=== PATIENT | female | born 1950 | race Caucasian/White ===

== ENCOUNTER → 2020-07-19 15:51 | Outpatient (CLI) | payer OTHER, SELFPAY ==
--- NOTE | ~2020-07-19 | MM_ITS ---
EXAMINATION: MM screening saba BI w aleksandr HISTORY: Screening mammogram TECHNIQUE: Craniocaudal and mediolateral oblique 3-D tomosynthesis images were obtained and synthetic 2-D images were generated. CAD analysis was submitted and interpreted. COMPARISON: 04/19/2019, 03/13/2018, 11/05/2016 bilateral digital screening mammogram examinations BREAST PARENCHYMAL COMPOSITION: The breasts are almost entirely fatty. FINDINGS: There is no evidence of suspicious mass, calcification, or architectural distortion to sugg est malignancy in either breast. There has been no suspicious interval change. IMPRESSION: 1. No mammographic evidence of malignancy. 2. Recommend routine screening mammography in one year. BI-RADS Category 1: Negative Reviewed, dictated and finalized at location A. L DIAMETER GAUGER
== END ==
PROVIDERS: PCP Family Medicine Adolescent Medicine; Visit Provider Physician Assistant
DX: Z12.31 Encounter for screening mammogram for malignant neoplasm of breast (principal)
CPT/HCPCS: 77063; 77067

== ENCOUNTER → 2020-12-31 10:26 | Outpatient (CLI) | payer OTHER, SELFPAY ==
--- NOTE | ~2020-12-31 | DEXA_ITS ---
Bone Density Report Name: Katie Gomes Age: 70 Sex: Female Ethnicity: White Date of : 1950 Indication: postmenopausal; screening for osteoporosis; height loss; Referring Provider: Johnie, Mary Adams Study: Bone densitometry was performed. Exam Date: December 31, 2020 Accession number: [id number] Bone Density: Region BMD T-score Z-score Classification AP Spine (L1-L4) 1.060 0.1 2.3 Normal Femoral Neck (Left) 0.786 -0.6 1.3 Normal Total Hip (Left) 0.882 -0.5 1.1 Normal Femoral Neck (Right) 0.772 -0.7 1.1 Normal Total Hip (Right) 0.925 -0.1 1.4 Normal Total Hip Mean 0.904 -0.3 1.3 Normal World Health Organization criteria for BMD impression classify patients as: Normal (T-score at or above -1.0), Osteopenia (T-score between -1.0 and -2.5), or Osteoporosis (T-score at or below -2.5). 10-year Fracture Risk: FRAX not reported because: All T-scores for Spine Total, Hip Total, Femoral Neck at or above -1.0 Previous Exams: Region Exam Age BMD T-score BMD Change BMD Change Date g/cm2 vs Baseline vs Previous AP Spine(L1-L4) 12/31/2020 70 1.060 0.1 -0.021 -0.052* 07/24/2015 65 1.112 0.6 0.030 0.063 07/28/2011 61 1.049 0.0 -0.033* -0.033* 07/23/2009 59 1.082 0.3 Total Hip(Left) 12/31/2020 70 0.882 -0.5 -0.038 -0.072* 07/24/2015 65 0.953 0.1 0.033 0.063 07/28/2011 61 0.890 -0.4 -0.029* -0.029* 07/23/2009 59 0.920 -0.2 Total Hip(Right) 12/31/2020 70 0.925 -0.1 0.011 -0.005 07/24/2015 65 0.931 -0.1 0.016 0.043 07/28/2011 61 0.887 -0.4 -0.027 -0.027 07/23/2009 59 0.914 -0.2 *Denotes significance at 95% confidence level, LSC for AP Spine = 0.022 g/cm2, LSC for Total Hip = 0.027 g/cm2 Clinical Information Provided by Patient: Has used the following medications: Calcium, Levothyroxine Patient maximum height was 62.0 Menopause Age: 50 No regular weight bearing exercise Drinks caffeinated beverages Onset of menses at age 12 Number of children 5 Impression: The patient has normal bone mass. The BMD for the AP Spine(L1-L4) decreased, changing by -0.052 since the last DXA exam. The BMD for the Total Hip(Left) decreased, changing by -0.072 since the last DXA exam. Discussion: BONE DENSITY IS ABOVE THE MINIMUM DESIRABLE LEVEL AT
== END ==
PROVIDERS: PCP Family Medicine Adolescent Medicine; Visit Provider Physician Assistant
DX: Z78.0 Asymptomatic menopausal state (principal)
CPT/HCPCS: 77080

== ENCOUNTER → 2021-10-17 13:34 | Outpatient (CLI) | payer OTHER, SELFPAY ==
--- NOTE | ~2021-10-17 | MM_ITS ---
EXAMINATION: MM screening saba BI w aleksandr HISTORY: Screening mammogram TECHNIQUE: Craniocaudal and mediolateral oblique 3-D tomosynthesis images were obtained and synthetic 2-D images were generated. CAD analysis was submitted and interpreted. COMPARISON: July 19, 2020, April 19, 2019, February 24, 2018 bilateral screening mammogram exami nations BREAST PARENCHYMAL COMPOSITION: The breasts are almost entirely fatty. FINDINGS: There is no evidence of suspicious mass, calcification, or architectural distortion to sugg est malignancy in either breast. There has been no suspicious interval change. IMPRESSION: 1. No mammographic evidence of malignancy. 2. Recommend routine screening mammography in one year. BI-RADS Category 1: Negative Reviewed, dictated and finalized at location A.
== END ==
PROVIDERS: PCP Family Medicine Adolescent Medicine; Visit Provider Family Medicine Adolescent Medicine
DX: Z12.31 Encounter for screening mammogram for malignant neoplasm of breast (principal)
CPT/HCPCS: 77063; 77067

== ENCOUNTER → 2021-12-10 15:10 | Outpatient (CLI) | payer OTHER, SELFPAY ==
--- NOTE | ~2021-12-10 | XR_ITS ---
XR lumbar spine 2-3V DATE: 12/10/2021 15:59 INDICATION: Multiple falls. Chronic low back pain TECHNIQUE: AP, lateral, coned lateral lumbosacral views COMPARISON: 01/30/2011 lumbar spine FINDINGS: There is diffuse osteopenia. Prominent degenerative spurring of the lower thoracic spine. Mild levoscoliosis of the lumbar spine. Moderate degenerative disc disease at L1 to, L2-3 and L5-S1 and mild degenerative disc disease at L3- 4 and L4-5. There is prominent degenerative change at the apophyseal joints in the lower lumbar and lumbosacral a tosha with associated approximately 2.5 mm grade 1 anterolisthesis at L4-5 and approximately 6 mm grade 1 anterolisthesis at L5-S1. No fracture or bone destruction is evident. The pedicles appear intact. There is degenerative change at the sacroiliac joints but no erosive change or ankylosis. IMPRESSION: Osteopenia Prominent degenerative spurring of the lower thoracic spine Mild to moderate degenerative disease of the lumbar spine Grade 1 anterolisthesis at L4-5 and L5-S1 due to degenerative change at the apophyseal joints Reviewed, dictated and finalized at location B. IMPRESSION: Osteopenia Prominent degenerative spurring of the lower thoracic spine Mild to moderate degenerative disease of the lumbar spine Grade 1 anterolisthesis at L4-5 and L5-S1 due to degenerative change at the apo physeal joints
== END ==
PROVIDERS: PCP Internal Medicine; Visit Provider Internal Medicine
DX: R29.6 Repeated falls (principal); G89.29 Other chronic pain; M85.88 Other specified disorders of bone density and structure, other site; M51.36 Other intervertebral disc degeneration, lumbar region; M51.34 Other intervertebral disc degeneration, thoracic region
CPT/HCPCS: 72100

== ENCOUNTER 2021-12-14 09:57 | Emergency (ER) | payer OTHER, SELFPAY ==
--- NOTE | ~2021-12-14 | US_ITS ---
EXAMINATION:US venous doppler LE RT INDICATION:Right leg swelling TECHNIQUE: Multiple grayscale, color flow and Doppler images of the right lower extremity deep venous systems were obtained and reviewed. COMPARISON:No prior studies for comparison. FINDINGS: The common femoral, superficial femoral and popliteal veins demonstrate normal respiratory variation, augmentation and compressibility. Color flow is also seen within the posterior tibial, pe roneal, greater saphenous and profunda veins. There are mildly enlarged right inguinal lymph nodes me asuring up to 2.7 cm, likely reactive. IMPRESSION: 1: No lower extremity deep venous thrombosis. Reviewed, dictated and finalized at location A.
--- NOTE | ~2021-12-14 | XR_ITS ---
XR tibia fibula RT 2V 12/14/2021 11:26 INDICATION: Right leg pain PROCEDURE: 2 views right tibia/fibula COMPARISON: No prior studies for comparison. FINDINGS: Fracture, dislocation or subluxation is not identified. There are degenerative changes of t he right knee and ankle. The soft tissues appear within normal limits. No foreign bodies are identif ied. IMPRESSION: 1: NO ACUTE BONE OR JOINT ABNORMALITY IDENTIFIED. Reviewed, dictated and finalized at location A.
--- NOTE | ~2021-12-14 | XR_ITS ---
XR foot RT min 3V 12/14/2021 11:26 Indication: Right foot pain and swelling Procedure: 4 views right foot Comparison: No prior studies for comparison. Findings: Osteopenia. Mild osteoarthritis of the first MTP joint. Lisfranc joint intact. No acute fra cture or traumatic malalignment. Small degenerative calcaneal enthesophyte. Impression: 1: No acute fracture. Reviewed, dictated and finalized at location A. Impression: 1: No acute fracture.
[2021-12-14 10:01] VITALS: BP 145/75; PULSE 79; RESP 17; TEMP 36.7; O2SAT 98
--- NOTE | 2021-12-14 11:25 | ED.LOWEXIN ---
HPI - Extremity Injury (Lower) General Chief Complaint: Extremity Injury, Lower Stated Complaint: swollen leg Time Seen by Provider: 12/14/21 10:48 Source: patient and RN notes reviewed Mode of arrival: ambulatory Limitations: no limitations History of Present Illness HPI Narrative: This is a 71 year old female who presents for evaluation of right foot and right lower leg discoloration and right leg swelling. Patient has history of frequent falls. Patient has fallen at least twice in past 3 days. She reports she fell 2 days ago . She is unsure if she injured her right leg. Her daughter is at bedside. She states patient looks to have bruising to right foot, and yesterday patient had what daughter is describing as petechia. Today she states her right lower leg looks bruised. Patient has also noticed right leg swelling yesterday but she is unsure if it has been there longer. She denies chest pain, sob. She has chronic weakness. Her daughter states patient was seen by new PCP 2 days and she has labs with lumbar xray. Patient denies headache , dizziness, or leg pain. She reports low back pain due to laying in her bed currently. Related Data Home Medications Medication Instructions Recorded Confirmed levothyroxine 50 mcg tablet 50 mcg PO DAILY 06/14/21 10/28/21 nystatin 100,000 unit/mL oral 1 ml PO BID PRN 09/23/21 10/28/21 suspension vibegron 75 mg tablet (Gemtesa) 75 mg PO DAILY 09/23/21 10/28/21 dicyclomine 20 mg tablet 20 mg PO QID 10/28/21 10/28/21 Allergies Allergy/AdvReac Type Severity Reaction Status Date / Time MINDY Inhibitors AdvReac Mild cough Verified 10/28/21 14:56 Review of Systems Review of Systems: All systems reviewed & are unremarkable except as noted in HPI and below Constitutional: Constitutional: Denies chills and Reports fatigue ENT: Denies nasal congestion Cardiovascular: Cardiovascular: Denies chest pain and Denies rapid heart rate Respiratory: Respiratory: Denies chest congestion, Denies cough and Denies dyspnea Gastrointestinal: Gastrointestinal: Denies abdominal pain and Denies nausea Musculoskeletal: Musculoskeletal: Reports back pain Neurologic: Denies headache(s) and Denies focal weakness [facility] Past Medical History Medical History (Updated 12/14/21 @ 13:34 by Cheryl Acevedo MD) Abnormal colonoscopy 07/13 adenoma Repeat 07/18 Bilateral primary osteoarthritis of knee Essential (primary) hypertension Hypothyroidism, unspecified Surgical History Surgical History History of carpal tunnel surgery Family History Family History Sibling Diabetes mellitus Son GERD (gastroesophageal reflux disease) Social History Social History (Updated 10/28/21 @ 14:58 by Cassidy Vaca MA) Smoking status: Former smoker Second hand tobacco smoke exposure: No Smoking end date: 05/25/88 Alcohol intake: never Substance use: never Substance use type: does not use Gender identity (if verbalized by the patient): Female Spiritual care concerns: No Agree to blood products: Yes Exam Const: General: no acute distress and alert Nutritional Appearance: obese Orientation/consciousness: patient oriented x3 Limitations: no limitations Eyes: EOM: EOMs intact bilaterally Chest: Chest palpation & inspection: normal inspection of the chest Resp: Effort & Inspection: normal respiratory effort Auscultation: clear to auscultation bilaterally Cardio: Rate: regular rate Rhythm: regular rhythm Heart sounds: no murmurs GI: GI Palp: Yes Soft to palpation, No Tenderness to palpation present (GI) and No Guarding due to palpation present (GI) Auscultation: normal bowel sounds Neuro: General: patient oriented x3, moves all extremities and CN's II-XI intact bilaterally Extrem: Other: right dorsum foot with swelling and ecchymosis; right lateral l
[2021-12-14 12:42] LABS: Basophils Percent Auto 0.5 % (0.2-1.2); Eosinophils Absolute Auto 0.3 K/mm3 (0-0.3); Eosinophils Percent Auto 3.3 % (0-4.4); Hematocrit 30.2 % (37.0-47.0); Hemoglobin 8.9 g/dL (12.0-15.0); Immature Granulocyte Absolute 0.01 K/mm3 (0.00-0.031); Immature Granulocyte Percent A 0.1 % (0-0.5); Lymphocytes Absolute Auto 1.51 K/mm3 (0.9-3.2); Lymphocytes Percent Auto 19.7 % (18.3-44.2); Mean Corpuscular HGB Conc 29.5 g/dl (32-36); Mean Corpuscular Hemoglobin 21.2 pg (26-34); Mean Corpuscular Volume 71.9 fl (80-100); Mean Platelet Volume 9.4 fl (7.4-10.4); Monocytes Absolute Auto 0.8 K/mm3 (0.1-0.6); Monocytes Percent Auto 10.6 % (2.6-8.5); Neutrophils Percent Auto 65.8 % (45.5-73.1); Platelet Count Result 303 k/mm3 (150-375); Red Cell Distribution Width 17.6 % (11.5-14.5); White Blood Count 7.7 K/mm3 (4.5-10.0)
[2021-12-14 12:54] LABS: Alanine Aminotransferase 19 U/L (6-35); Albumin Level 3.8 g/dL (3.5-5.1); Alkaline Phosphatase 95 U/L (38-126); Anion Gap 4 mmol/L (8-16); Aspartate Amino Transferase 33 U/L (14-36); Bilirubin,Total 0.6 mg/dL (0.2-1.3); Blood Urea Nitrogen 14 mg/dL (7-17); Calcium 8.5 mg/dL (8.4-10.2); Carbon Dioxide 30 mmol/L (22-30); Chloride 102 mmol/L (98-107); Estimated CRCL calculation 56 ml/min; Estimated Glomerular Filt Rate > 60; Glucose 88 mg/dL (65-110); Potassium 3.5 mmol/L (3.4-5.0); Sodium 136 mmol/L (137-145)
[2021-12-14 13:11] LABS: Platelet Estimate Adequate (Adequate)
[2021-12-14 13:12] LABS: Anisocytosis 1+ (NORMAL); Hypochromasia 2+ (NORMAL); Ovalocytes 1+ (NORMAL); Poikilocytosis 2+ (NORMAL)
--- NOTE | 2021-12-14 13:28 | PC.NURSE ---
Patient ambulatory with standby assist by ticket writer.
== END 2021-12-14 13:57 | disposition home or self-care (01) ==
PROVIDERS: Emergency Provider General Practice; PCP Internal Medicine
DX: S80.11XA Contusion of right lower leg, initial encounter (principal); S90.31XA Contusion of right foot, initial encounter; D64.9 Anemia, unspecified; I10 Essential (primary) hypertension; E03.9 Hypothyroidism, unspecified; M17.0 Bilateral primary osteoarthritis of knee; Z87.891 Personal history of nicotine dependence; W19.XXXA Unspecified fall, initial encounter
CPT/HCPCS: 36415; 73590; 73630; 80053; 85025; 85610; 85730; 93971; 99284

== ENCOUNTER 2024-05-10 09:47 | Emergency (ER) | payer MEDICARE, SELFPAY ==
--- NOTE | ~2024-05-10 | XR_ITS ---
XR chest 2V Ordering provider: Amanda Salgado APRN History: 74 years Female with . L sided chest pain . Comparison: None. FINDINGS: MEDIASTINUM: The cardiac silhouette is slightly enlarged. Congestive ruth. LUNGS: No effusions or pneumothorax. Opacification in the left lower lobe is seen suggestive of pneum onia. OTHER: No free air under the diaphragm. IMPRESSION: Left lower lobe pneumonia. Reviewed, dictated and finalized at location A. T LINE INSPECTOR IMPRESSION: Left lower lobe pneumonia.
--- NOTE | ~2024-05-10 | CT_ITS ---
CT brain wo con Ordering provider: Amanda Salgado APRN History: 74 years Female with . recent falls . Comparison: None. Technique: CT of the head without contrast. Radiation reduction technique utilized.The dose-length product was 605.33 mGy-cm. FINDINGS: BRAIN PARENCHYMA AND CSF SPACES: Mild leukoaraiosis and diffuse cortical atrophy. Mild atheromatous d isease. No midline shift, mass effect or hemorrhage. The brain parenchyma and CSF spaces are otherwi se normal. VISUALIZED PARANASAL SINUSES: Well aerated. MASTOIDS: Well aerated. BONES: The bones appear intact. SOFT TISSUES: Visualized nasopharynx is normal. Superficial soft tissues are normal. IMPRESSION: No acute intracranial findings. Reviewed, dictated and finalized at location A. EYOR
[2024-05-10 09:43] VITALS: BP 126/92; PULSE 87; RESP 16; TEMP 36.4; O2SAT 98
[2024-05-10 10:00] VITALS: BP 116/67; PULSE 71; RESP 14; O2SAT 97
--- NOTE | 2024-05-10 10:04 | ECG_ITS ---
Test Date: 2024-05-10 10:16:30 Measurements Intervals Penelope Rate: 69 P: 54 HI: 184 QRS: -33 QRSD: 93 T: 35 QT: 412 QTc: 444 Interpretive Statements SINUS RHYTHM LEFT AXIS DEVIATION [QRS AXIS < -30] No previous ECG available for comparison Electronically Signed On 05-10-2024 16:18:41 [employer]OUNDS SUPERVISOR by Nelia Molina M.D.
--- NOTE | 2024-05-10 10:12 | ED.FALL ---
HPI - Fall General Chief Complaint: Fall Stated Complaint: mult glf History of Present Illness HPI Narrative: Pt is a 74-year-old female who presents to the ER after a fall this morning. She reports she got up and slipped on a blanket on the floor, then fell backwards. Patient denies hitting her head and she denies being on blood thinners. She reports she has had lots of recent falls lately and has multiple bruises and scabs all over her body. Patient is unsure why she has been falling recently. She endorses left-sided ribcage pain but has no other complaints at this time. Patient denies any medical history but reports she lives in assisted living. She denies shortness of breath, headaches, one-sided weakness / numbness / tingling, recent fevers. Related Data Home Medications ?Medication ?Instructions ?Recorded ?Confirmed ?Last Taken ?Type nystatin 100,000 unit/mL oral 1 ml PO BID PRN 09/23/21 10/28/21 Unknown History suspension vibegron 75 mg tablet (Gemtesa) 75 mg PO DAILY 09/23/21 10/28/21 Unknown History dicyclomine 20 mg tablet 20 mg PO QID 10/28/21 10/28/21 Unknown History Allergies Allergy/AdvReac Type Severity Reaction Status Date / Time MINDY Inhibitors AdvReac Mild cough Verified 10/28/21 14:56 Review of Systems Review of Systems: All systems reviewed & are unremarkable except as noted in HPI and below PMFSH Past Medical History Medical History Abnormal colonoscopy 07/13 adenoma Repeat 07/18 Hypothyroidism, unspecified Bilateral primary osteoarthritis of knee Essential (primary) hypertension Surgical History Surgical History History of carpal tunnel surgery Family History Family History Sibling Diabetes mellitus Son GERD (gastroesophageal reflux disease) Social History Social History Smoking status: Former smoker Second hand tobacco smoke exposure: No Smoking end date: 05/25/88 Alcohol intake: never Substance use: never Substance use type: does not use Living arrangements: alone Occupation/Education: retired Gender identity (if verbalized by the patient): Female Spiritual care concerns: No Agree to blood products: Yes Exam Narrative: GENERAL: Well appearing, well-nourished, non-toxic, in no acute distress. HEAD: Normocephalic, atraumatic. NECK: Supple. No adenopathy, no masses. RESPIRATORY: Airway patent, respirations nonlabored. Clear to auscultation bilaterally, no rales, rhonchi, wheezing. CARDIOVASCULAR: Regular rate and rhythm without murmurs, rubs, or gallops. Peripheral pulses 2+ and equal bilaterally. Pain to L rib cage with palpation. ABDOMINAL: Soft, nontender, nondistended, no hepatosplenomegaly. Normoactive BS. MUSCULOSKELETAL: Moves all extremities. Strength/ROM intact without gross deformities. SKIN: Warm, dry, normal color. No rashes. NEURO: A&O X3. Speech clear. Cranial nerves II-XII grossly intact. No ataxic movements. PSYCHIATRIC: Appropriate mood and affect. Normal interaction. Course Vital Signs Vital signs: Vital Signs Temperature 36.4 C 05/10/24 09:43 Pulse Rate 87 05/10/24 09:43 Respiratory Rate 16 05/10/24 09:43 Blood Pressure 126/92 H 05/10/24 09:43 Pulse Oximetry 98 05/10/24 09:43 Oxygen Delivery Room Air 05/10/24 09:43 Temperature 36.4 C 05/10/24 09:43 Pulse Rate 78 05/10/24 12:37 Respiratory Rate 15 05/10/24 12:37 Blood Pressure 129/67 05/10/24 12:37 Pulse Oximetry 95 05/10/24 12:37 Oxygen Delivery Room Air 05/10/24 09:43 MDM - Fall MDM Narrative Medical decision making narrative: Pt is a 74-year-old female who presents to the ER after a fall this morning. She reports she got up and slipped on a blanket on the floor, then fell backwards. Patient denies hitting her head and she denies being on blood thinners. She reports she has had lots of recent falls lately and has multiple bruises and scabs all over her body. Patient is unsure why she has been falling recently. She endorses left-sided ribcage pain but has no other complaints at this time. Patient denies any medical history but reports she lives in assisted living. She denies shortness of breath, headaches, one-sided weakness / numbness / tingling, recent fevers. Labs Ordered: CBC, CMP, EtOH, UA, INR, PTT, troponin, COVID Imaging Ordered: CT brain, chest x-ray Results: Patient's CBC indicates white blood cell count of 12.9. Coags are within normal limits. Patient's CMP indicates a carbon dioxide of 31, anion gap 3, BUN of 21, creatinine of 1.10, estimated GFR of 49. her urinalysis indicated 3+ leukocytes, white blood cells 51-100, ethanol was less than 10. Negative respiratory panel swab. Diagnosis: Pneumonia, urinary tract infection Risks: HEART score: 3 HEART Pathway for Early Discharge in Acute Chest Pain from [facility] on 05/10/2024 All calculations should be rechecked by clinician prior to use RESULT SUMMARY: 3 points HEART Pathway Score Low risk 0.9-1.7% 30-day MACE Repeat troponin at 3 hours and if negative, discharge home with outpatient follow-up. INPUTS: History ?> 0 = Slightly suspicious EKG ?> 0 = Normal Age ?> 2 = >=5 Risk factors ?> 1 = 1-2 risk factors Initial troponin ?> 0 = <=normal limit Patient Education/Shared MDM: Results shared with the patient. She verbalizes understanding. As long as patient can ambulate around the ER she can be discharged home. Patient will be discharged with a prescription for Augmentin and doxycycline. She should follow-up with her primary care provider in the next 2-3 days. Patient verbalizes understanding and is in agreement with plan to discharge home. All questions answered. Vital signs stable at time of discharge. Differential Diagnosis Differential diagnosis: Likely concussion without loss of consciousness Lab Data Attestation: I reviewed the patient's lab results. 05/10/24 10:36 05/10/24 10:36 Labs: Lab Results 05/10/24 05/10/24 Range/Units 10:36 11:14 WBC 12.9 H (4.5-10.0) K/mm3 RBC 4.42 (4.2-5.4) M/mm3 Hgb 12.4 D (12.0-15.0) g/dL Hct 39.0 (37.0-47.0) % MCV 88.2 (80-100) fl MCH 28.1 (26-34) pg MCHC 31.8 L (32-36) g/dl RDW 15.4 H (11.5-14.5) % Plt Count 296 (150-375) k/mm3 MPV 10.1 (7.4-10.4) fl Immature Gran % (Auto) 0.5 (0-0.5) % Neut % (Auto) 78.0 H (45.5-73.1) % Lymph % (Auto) 11.0 L (18.3-44.2) % [place] % (Auto) 7.1 (2.6-8.5) % Eos % (Auto) 3.0 (0-4.4) % Baso % (Auto) 0.4 (0.2-1.2) % Lymph # (Auto) 1.42 (0.9-3.2) K/mm3 [place] # (Auto) 0.9 H (0.1-0.6) K/mm3 Eos # (Auto) 0.4 H (0-0.3) K/mm3 Baso # (Auto) 0.1 (0.0-0.1) K/mm3 Abs Immat Gran (auto) 0.06 H (0.00-0.031) K/mm3 Absolute Neuts (auto) 10.1 H (1.3-6.7) K/mm3 Absolute Nucleated RBC 0.000 (0.0-0.012) K/mm3 Nucleated RBC % 0.0 (0.0-0.2) % PT 13.8 (11.1-14.7) Seconds INR 1.0 APTT 35.3 (22.3-36.8) Seconds Sodium 137 (137-145) mmol/L Potassium 3.6 (3.4-5.0) mmol/L Chloride 103 (98-107) mmol/L Carbon Dioxide 31 H (22-30) mmol/L Anion Gap 3 L (4-12) mmol/L BUN 21 H (7-17) mg/dL Creatinine 1.10 H (0.7-1.0) mg/dL Estim Creat Clear Calc 0 ml/min Estimated GFR 49 L (59 - ) Glucose 86 (65-110) mg/dL Calcium 8.9 (8.4-10.2) mg/dL Total Bilirubin 1.1 (0.2-1.3) mg/dL AST 33 (14-36) U/L ALT 22 (6-35) U/L Alkaline Phosphatase 89 (38-126) U/L Troponin I < 0.012 (0.000-0.034) ng/mL Total Protein 7.0 (6.3-8.2) g/dL Albumin 3.6 (3.5-5.1) g/dL Urine Color Yellow (Yellow) Urine Appearance Cloudy H (Clear) Urine pH 6.5 (5.0-9.0) Ur Specific [place] 1.011 (1.001-1.035) Urine Protein Negative (Negative) mg/dL Urine Glucose (UA) Negative (Negative) mg/dL Urine Ketones Negative (Negative) mg/dL Ur Blood (Man) Negative (Negative) Urine Nitrate Negative (Negative) Urine Bilirubin Negative (Negative) Urine Urobilinogen 0.2 (<2.0) mg/dL Leukocyte Esterase Rfl 3+ H (Negative) LISSET/UL Urine RBC 0-2 (0-2) /hpf Urine WBC 51-100 H (0-3) /hpf Ur Squamous Epith Cells Few (Few) /hpf Urine Bacteria None seen /hpf Urine Casts 0-2 Ethyl Alcohol < 10 (<10) mg/dL Influenza A (RT-PCR) Negative (Negative) Influenza B (RT-PCR) Negative (Negative) RSV (RT-PCR) Negative (Negative) SARS-CoV-2 RNA (RT-PCR) Negative (Negative) Imaging Data Attestation: I personally reviewed and interpreted this imaging study as follows: Radiologist's impression: Impressions Head CT 05/10/24 10:33 IMPRESSION: No acute intracranial findings. Chest X-Ray 05/10/24 10:39 IMPRESSION: Left lower lobe pneumonia. Discharge Plan Discharge Clinical Impression: Pneumonia, Urinary tract infection Patient Disposition: Home, Self-Care Condition: Stable Instructions: Antibiotic Form, Urinary Tract Infection in Women (ED), Community Acquired Pneumonia (ED) Additional Instructions: Please return to the ER with an worsening symptoms. Follow-up with primary care provider in the next 2-3 days. Take all medications as prescribed. Patient Language: Latvian Prescriptions: New amoxicillin-pot clavulanate 875-125 mg tablet 1 tablet PO Q12H Qty: 20 0RF doxycycline monohydrate 100 mg tablet 100 mg PO BID Qty: 20 0RF No Action Gemtesa 75 mg tablet 75 mg PO DAILY nystatin 100,000 unit/mL suspension 1 ml PO BID PRN Rx Instructions: swish and swallow dicyclomine 20 mg tablet 20 mg PO QID triamcinolone acetonide 0.1 % cream 1 applic topical BID Qty: 15 0RF amoxicillin 500 mg tablet 500 mg PO Q8H Qty: 30 0RF sertraline 100 mg tablet 100 mg PO DAILY Qty: 90 1RF losartan 100 mg tablet 100 mg PO DAILY Qty: 90 2RF bupropion HCl [Wellbutrin XL] 150 mg tablet extended release 24 hr 150 mg PO QAM Qty: 30 2RF levothyroxine 50 mcg tablet See Rx Instructions .ROUTE .COMPLEX Qty: 90 2RF Dose Instruction: TAKE 1 TABLET BY MOUTH EVERY DAY Rx Instructions: TAKE 1 TABLET BY MOUTH EVERY DAY omeprazole 20 mg capsule,delayed release(DR/EC) See Rx Instructions .ROUTE .COMPLEX Qty: 90 0RF Dose Instruction: Take 1 capsule by mouth once daily Rx Instructions: Take 1 capsule by mouth once daily Follow-up/Referrals: Ester,MD Rosmery [Primary Care Provider] - Time of Disposition: 13:39
[2024-05-10] MEDS: SODIUM CHLORIDE 0.9% IV 1,000 ML 999 ML IV CONT (10:20)
[2024-05-10 10:50] LABS: Basophils Absolute Auto 0.1 K/mm3 (0.0-0.1); Basophils Percent Auto 0.4 % (0.2-1.2); Eosinophils Absolute Auto 0.4 K/mm3 (0-0.3); Hemoglobin 12.4 g/dL (12.0-15.0); Immature Granulocyte Absolute 0.06 K/mm3 (0.00-0.031); Immature Granulocyte Percent A 0.5 % (0-0.5); Lymphocytes Absolute Auto 1.42 K/mm3 (0.9-3.2); Mean Corpuscular HGB Conc 31.8 g/dl (32-36); Mean Corpuscular Hemoglobin 28.1 pg (26-34); Mean Corpuscular Volume 88.2 fl (80-100); Mean Platelet Volume 10.1 fl (7.4-10.4); Monocytes Absolute Auto 0.9 K/mm3 (0.1-0.6); Monocytes Percent Auto 7.1 % (2.6-8.5); Neutrophils Absolute Auto 10.1 K/mm3 (1.3-6.7); Platelet Count Result 296 k/mm3 (150-375); Red Blood Count 4.42 M/mm3 (4.2-5.4); Red Cell Distribution Width 15.4 % (11.5-14.5); White Blood Count 12.9 K/mm3 (4.5-10.0)
[2024-05-10 11:00] LABS: Alanine Aminotransferase 22 U/L (6-35); Albumin Level 3.6 g/dL (3.5-5.1); Alkaline Phosphatase 89 U/L (38-126); Anion Gap 3 mmol/L (4-12); Aspartate Amino Transferase 33 U/L (14-36); Bilirubin,Total 1.1 mg/dL (0.2-1.3); Blood Urea Nitrogen 21 mg/dL (7-17); Calcium 8.9 mg/dL (8.4-10.2); Carbon Dioxide 31 mmol/L (22-30); Chloride 103 mmol/L (98-107); Estimated CRCL calculation 0 ml/min; Estimated Glomerular Filt Rate 49; Ethanol < 10 mg/dL (<10); Glucose 86 mg/dL (65-110); Potassium 3.6 mmol/L (3.4-5.0); Sodium 137 mmol/L (137-145)
[2024-05-10 11:11] LABS: Troponin I < 0.012 ng/mL (0.000-0.034)
[2024-05-10 11:17] LABS: Partial Thromboplastin Time 35.3 Seconds (22.3-36.8); Prothrombin Time 13.8 Seconds (11.1-14.7)
[2024-05-10 11:26] LABS: Add Urine Microscopic? YES; Appearance Urine Cloudy (Clear); Bacteria Urine None Seen /hpf; Bilirubin Urine Negative (Negative); Blood Urine Negative (Negative); Color Urine Yellow (Yellow); Glucose Urine UA Negative (Negative); Ketones Urine Negative (Negative); Leukocyte Esterase Ur 3+ LEU/UL (Negative); Nitrate Urine Negative (Negative); Non Pathogenic Casts 0-2; Protein Urine Negative (Negative); RBC Urine 0-2 /hpf (0-2); Specific Grav Ur 1.011 (1.001-1.035); Squamous Epithelial Cell Urine Few /hpf (Few); Urobilinogen Urine 0.2 mg/dL (<2.0); WBC Urine 51-100 /hpf (0-3); pH Urine 6.5 (5.0-9.0)
[2024-05-10 11:30] LABS: Influenza A QL RT-PCR Negative (Negative); Influenza B QL RT-PCR Negative (Negative); RSV RNA, RT-PCR Negative (Negative); SARS-CoV-2 RNA PCR Negative (Negative)
[2024-05-10 12:37] VITALS: BP 129/67; PULSE 78; RESP 15; O2SAT 95
--- NOTE | 2024-05-10 13:36 | PC.NURSE ---
Ambulated using walker. Tolerated well with steady gait.
[2024-05-10] MEDS: DOXYCYCLINE HYCLATE 100 MG TABLET PO (13:40)
[2024-05-10] MEDS: AMOXICILLIN/CLAVULANATE K 875-125 MG TAB 1 TABLET PO (13:41)
== END 2024-05-10 15:05 ==
PROVIDERS: Emergency Provider Registered Nurse; PCP Internal Medicine
DX: J18.9 Pneumonia, unspecified organism (principal); N39.0 Urinary tract infection, site not specified; R29.6 Repeated falls; I10 Essential (primary) hypertension; E03.9 Hypothyroidism, unspecified; M17.0 Bilateral primary osteoarthritis of knee; Z87.891 Personal history of nicotine dependence; W18.09XA Striking against other object with subsequent fall, initial encounter
CPT/HCPCS: 36415; 70450; 71046; 80053; 81001; 82077; 84484; 85025; 85610; 85730; 87086; 87637; 93005; 96360; 99284; A9270; J7030

== ENCOUNTER 2024-09-28 14:45 | Emergency (ER) | payer BC, SELFPAY ==
--- NOTE | ~2024-09-28 | CT_ITS ---
CT brain wo con Ordering provider: Leah Baker History: 74 years Female with . head injury . Comparison: None. Technique: CT of the head without contrast. Radiation reduction technique utilized. The dose-length product was 605.33 mGy-cm. FINDINGS: BRAIN PARENCHYMA AND CSF SPACES: Mild leukoaraiosis and diffuse cortical atrophy. Mild atheromatous d isease. Dilatation of the ventricle is more prominent than the brain atrophy. Normal pressure hydroce phalus should be considered. Vasogenic edema is less likely with no focal lesions seen in the brain.f ollow-up advised. No midline shift, mass effect or hemorrhage. The brain parenchyma and CSF spaces a re otherwise normal. VISUALIZED PARANASAL SINUSES: Well aerated. MASTOIDS: Well aerated. BONES: The bones appear intact. SOFT TISSUES: Visualized nasopharynx is normal. Superficial soft tissues are normal. IMPRESSION: No acute intracranial findings. Mild brain atrophy with deep white matter ischemic changes. The ventricles are slightly dilated more than the brain atrophy and normal pressure hydrocephalus should be considered. The possibility of vas ogenic edema is less likely but cannot be excluded. Follow-up advised Reviewed, dictated and finalized at location A. IMPRESSION: No acute intracranial findings. Mild brain atrophy with deep white matter ischemic changes. The ventricles are slightly dilated more than the brain atrophy and normal pressure hydrocephalus should be considered. The possibility of vasogenic edema is less likely but can not be excluded. Follow-up advised
--- NOTE | ~2024-09-28 | XR_ITS ---
XR chest 2V Ordering provider: Leah Baker History: 74 years Female with . fall . Comparison: May 10, 2024 FINDINGS: MEDIASTINUM: The cardiac silhouette is not enlarged. LUNGS: No infiltrates, effusions or pneumothorax. OTHER: No free air under the diaphragm. Degenerative changes of the spine. Old healed fracture of the left humerus. IMPRESSION: No acute cardiopulmonary pathology. Reviewed, dictated and finalized at location A.
--- NOTE | ~2024-09-28 | XR_ITS ---
XR forearm LT 2V Ordering provider: Leah Baker History: . fall, injury . Comparison: None. FINDINGS: BONES: No acute fracture or dislocation. JOINT SPACES: Normal. SOFT TISSUES: Normal. IMPRESSION: No acute osseous abnormality left forearm. Reviewed, dictated and finalized at location A.
--- NOTE | ~2024-09-28 | XR_ITS ---
SINGLE AP VIEW PELVIS Ordering provider: Leah Baker History: . fall . Comparison: None. FINDINGS: BONES: No acute fracture or dislocation. HIP JOINT SPACES: Bilateral hip severe osteoarthritic changes. SACROILIAC JOINT SPACES/LUMBAR SPINE: The sacroiliac joint spaces shows bilateral sacroiliitis.. Mild degenerative changes of the visualized lower lumbar spine. PUBIC SYMPHYSIS: Pubic symphysitis. SOFT TISSUES: Normal. IMPRESSION: No acute osseous abnormality pelvis. Reviewed, dictated and finalized at location A.
--- NOTE | ~2024-09-28 | CT_ITS ---
EXAMINATION: CT cervical spine wo con DATE: 09/28/2024 15:53 INDICATION: Head injury TECHNIQUE: Computed tomography (CT) of the cervical spine was performed without intravenous contrast. Automated exposure control and iterative reconstruction technique were employed. The dose-length pro duct was 377.64 mGy-cm. COMPARISON: None FINDINGS: 1 mm anterolisthesis C4 on C5. Moderate osteoarthritis at the atlantoaxial articulation. C5-C6 instru mented anterior spinal fusion with interbody bone graft cages and anterior plate-screw fixation. Unfu sed vertebral body heights are normal. No fracture. Moderate disc height loss with severe bilateral u ncovertebral osteoarthritis at C6-C7. Mild disc height loss with moderate uncovertebral osteoarthriti s at C3-C4 and with mild uncovertebral osteoarthritis at C4-C5. Posterior disc osteophyte complex at C6-C7 and posterior endplate osteophytes at C5-C6 and mild central canal stenosis. Multilevel severe bilateral cervical facet osteoarthritis. There is moderate neural foraminal stenosis on the left at C 3-C4, on the right at C4-C5 and bilaterally at C5-C6. Mild neural from stenosis at remaining cervical levels. Atherosclerotic calcifications at the bilateral carotid bulbs. Cervical soft tissues are oth erwise unremarkable. Mild emphysema mild pleural parenchymal scarring at the bilateral apices of the lungs. IMPRESSION: 1. Moderate cervical spondylosis with instrumented C5-C6 anterior spinal fusion. No acute osseous abn ormality. Reviewed, dictated and finalized at location A. IMPRESSION: 1. Moderate cervical spondylosis with instrumented C5-C6 anterior spinal fusion . No acute osseous abnormality.
--- OUTSIDE RECORDS SUMMARY | 2024-09-28 14:51 | XMS_ITS | Data Portability ---
Author Organization [place] [facility] Address [address] [place] [address] Assessment No assessment recorded. Plan of Treatment Reminders Order Date Submit Date Provider Last Modified By Organization Details Last Modified Time Details Appointments None recorded. Lab None recorded. Referral occupation al therapist referral [email or web address] [place] [address], [id number], 3 11:26:48 physical therapist referral - PT/OT leni please to start around March 052022 023 [facility] ([facility] PT/OT), [address] [place], [address], 3 23:15:29 Procedures None recorded. Surgeries None recorded. Imaging None recorded. Medication Orders None recorded. Patient TargetsNo targets recorded. Patient Instructions Encounter Date Encounter Id Patient Instructions Last Modified By Organization Details Last Modified Time 02/13/2023 [id number] I explained to Katie that the fracture she has sustained is not one that requires surgical intervention. The way that we are going to treat this is with a sling. I told her that I want her to work on elbow and wrist range of motion exercises a few times a day to keep these joints from getting stiff. She can go ahead and start doing those now. Starting in a week I want her to work on gentle range of motion exercises in her shoulder, including front to back and pendulum exercises, which were shown to her in the office today. She should do these a few times a day as well. I want her to start some physical therapy in 3 weeks working on range of motion in her shoulder. She can continue to take Tylenol as needed for pain and she can also use ice as needed. I want to follow-up with her in about 6 weeks with another x-ray to check on her progress. She was instructed to contact our office with any questions or concerns. She voiced understanding and agreed with this plan of care. Patient was seen by Missy Bolden NP, and the diagnoses, problems and treatment plan for the patient has been reviewed and approved by me, Dr. Hira Mei. Not available 02/15/2023 23:03:03 03/25/2023 [id number] I discussed with Katie that her x-rays today show that there is callus forming through her fracture, so she can discontinue the use of her sling. I am going to send an order to physical therapy to work on range of motion and strengthening in the shoulder. I told her that we need to get concentrate on getting some motion back in that shoulder in order for her to have the best outcome following her fracture. She can use ice and OTC pain medication as needed. I want to follow-up with her in about 4 weeks to check on her progress. She was instructed to contact our office with any questions or concerns. She voiced understanding and agreed with this plan of care. Patient was seen by Missy Bolden NP, and the diagnoses, problems and treatment plan for the patient has been reviewed and approved by , Dr. Hira Mei. Not available 03/27/2023 00:29:14 Reason for Referral Physical Therapist Referral for Closed fracture of surgical neck of humerus PT/OT eval and tx please to start around March 05 Referring Physician: Hira Mei, Orthopedic Surgery, Encounter Date: 02/13/2023 Occupational Therapist Refer ral for Closed fracture of surgical neck of humerus Referring Physician: Hira Mei, Orthopedic Surgery, Encounter Date: 03/25/2023 Results Created Date Observation Date Name Description Value Unit Range Abnormal Flag Note LastModifiedBy Organization Detail LastModifiedTime 03/25/20 23 03/25/2023 XR, shoul adam No observ ation record ed. [email or web address] [facility] [address] [facility], [place], [address], 03/26/2023 15:39:03 Result Notes None recorded. Problems Name Problem SNOMED Code Status Onset Date Resolution Date Notes Provider Name and Address Organization Details Recorded Time Closed fracture of surgical neck of humerus 17935205 Active 023 MISSY BOLDEN, GUEST SERVICES MANAGER [address], [place], [address] , [place] [facility] 3 22:59:46 Pain in left arm 754539676 Active 023 MISSY BOLDEN, GUEST SERVICES MANAGER [address], [place], [address] , [place] [facility] 3 23:00:05 Problem Notes None recorded. Procedures Surgical History None recorded. Imaging Results Imaging Date Name Status LastModified by Organiz ation Details LastModified Time 03/25/2023 XR, shoulder completed [email or web address] [facility] [address] [facility], [place], [address], 03/26/2023 15:39:03 Procedure Notes None recorded. Medical Equipment None Reported. Allergies No known drug allergies Medications Name Sig Start Date Stop Date Status Note LastModified by Organization Details LastModified Time goodsense fiber 500 mg tabs active Not Available Not Available Not Available cyclobenzapr ine 10 mg tablet TAKE 1 TABLET BY MOUTH THREE TIMES DAILY NEEDED FOR MUSCLE SPASM active Not Available Not Available No t Available atorvastatin 40 mg tablet TAKE 1 TABLET BY MOUTH NIGHTLY AT BEDTIME active Not Available Not Available No t Available atorvastatin 20 mg tablet TAKE 1 TABLET BY MOUTH AT NIGHT AT BEDTIME active Not Available Not Available No t Available fluconazole 150 mg tablet active Not Available Not Available Not Available hydrocodone 5 mg-acetamino phen 325 mg tablet TAKE 1 TO 2 TABLETS BY MOUTH EVERY 6 HOURS NEEDED FOR PAIN active Not Available Not Available No t Available sertraline 100 mg tablet TAKE 1 TABLET BY MOUTH ONCE DAILY active Not Available Not Available No t Available clotrimazole 1 % vaginal cream active Not Available Not Available Not Available ciprofloxaci n 500 mg tablet active Not Available Not Available Not Available sulfamethoxa zole 800 mg-trimethop rim 160 mg tablet TAKE 1 TABLET BY MOUTH TWICE DAILY FOR 7 DAYS active Not Available Not Available No t Available amlodipine 10 mg tablet TAKE 1 TABLET BY MOUTH ONCE DAILY active Not Available Not Available No t Available levothyroxin e 50 mcg tablet TAKE 1 TABLET BY MOUTH ONCE DAILY active Not Available Not Available No t Available cyanocobalam in (vit B-12) 1,000 mcg/mL injection solution INJECT 1 ML (CC) INTRAMUSCUL HENRY ONCE A WEEK active Not Available Not Available No t Available BD Luer-Silva Syringe 3 mL 25 gauge x 1 USE DIRECTED TO INJECT VITAMIN BEFORE-12 EVERY WEEK active Not Available Not Available N ot Available omeprazole 20 mg capsule,karina yed release TAKE 1 CAPSULE BY MOUTH ONCE DAILY active Not Available Not Available No t Available furosemide 20 mg tablet active Not Available Not Available Not Available ergocalcifer ol (vitamin D2) 1,250 mcg (50,000 unit) capsule TAKE 1 CAPSULE BY MOUTH ONCE A WEEK active Not Available Not Available No t Available nystatin 100,000 unit/gram topical powder active Not Available Not Available Not Available losartan 100 mg tablet TAKE 1 TABLET BY MOUTH ONCE DAILY active Not Available Not Available No t Available bupropion HCl XL 150 mg 24 hr tablet, extended release TAKE 1 TABLET BY MOUTH ONCE DAILY active Not Available Not Available No t Available Fiber Therapy (methylcellu lose) 500 mg tablet active Not Available Not Available Not Available BD Integra Syringe 3 mL 25 gauge x 5/8 active Not Available Not Available Not Available FeroSul 325 mg (65 mg iron) tablet TAKE 1 TABLET BY MOUTH ONCE DAILY active Not Available Not Available No t Available CertaVite Senior 0.4 mg-300 mcg-250 mcg tablet active Not Available Not Available Not Available Flintstones with Iron 18 mg iron chewable tablet active Not Available Not Available Not Available Vitals Date Recorded Body height Body mass index (BMI) Body weight Body temperature Heart rate Systolic blood pressure Diastolic blood pressure Provider Name and Address Organization Details Last Updated DateTime 3 152.4 cm 38.1 kg/m2 37805.5 1 g 96.9 [degF] 80 /min 114 mm[Hg] 70 mm[Hg] Dedra Christine [place] [facility] 3 15:24:17 Date Recorded Body height Body mass index (BMI) Body weight Heart rate Systolic blood pressure Diastolic blood pressure Provider Name and Address Organization Details Last Updated DateTime 3 152.4 cm 38.1 kg/m2 81984.5 1 g 76 /min 116 mm[Hg] 75 mm[Hg] Radha Melendrez [place] [facility] 12:01:32 Social History None recorded. Functional Status None recorded. Mental Status None recorded. Family History Relationship Description Onset Age of this Age Resolved Age Notes LastModified by Organization Details LastModified Time Father No current problems or disability [email or web address] Not available 03/25 12:02:03 Mother No current problems or disability [email or web address] Not available 03/25 12:02:03 Medical History No medical history recorded. Gynecological HistoryNo gynecological history recorded. Obstetrics History GPAL:G 0 P 0 0 0 0 Past Encounters Encounter ID Performer Location Encounter Start Date Encounter Closed Date Diagnosis/Indication Diagnosis SNOMED-CT Code Diagnosis ICD10 Code Diagnosis Note [id number] Hira Mei [facility] [address] [place] [address] 02/13/2023 14:52:32 02/13/2023 15:47:42 Closed fracture of surgical neck of humerus 16704257 S42.215A Pain in left arm 5961520 00 M79.602 [id number] Hira Mei [facility] [address] [place] [address] 03/25/2023 11:54:47 03/25/2023 12:28:54 Closed fracture of surgical neck of humerus 71846162 S42.215D Health Concerns Section Related Observation LastModified by Organization Detai ls LastModified Time None Recorded Concern Status LastModified by Organization Details LastModified Time None Recorded Advance Directives Directive None Recorded Payers Encounter Date Sequence Insurance Name Policy Number Policy Mcconnell Covered Member ID Mcconnell Member ID Guarantor Name 02/13/2023 1 [facility] (MEDICARE REPLACEMENT HMO) [id number] Kaite Gomes [id number] Katie Gomes 03/25/2023 SELF PAY - [employer] Katie Gomes Notes Date Note Type Note Provider Name and Address Organization Details Recorded Time 02/13/2023 text/html ShoulderReported bypatient.Hand Dominance:right Location:left Quality:aching Severity:moderate; pain level 5-6/10 Timing:date of onset: (02/10/2023) Duration:acute Context:fall Aggravating Factors:lifting; carrying; pushing/pulling; ROM; weightbearing Alleviating Factors:rest; limited weight bearing; OTC medication; sling Associated Symptoms:no numbness; no tingling;ecchymosis Prior Imaging:x ray Katie is seen in clinic today following a visit to the [place] ED on 02/10/2023 after she fell and landed on her left side. She was diagnosed with a fracture of her left humerus and placed in a sling. She says she is doing okay today. She rates her pain a 5-6/10 today. She has been taking Tylenol every 4 hours as needed and says that this is helping. The ROS is reviewed with the patient and a copy is located in the chart. MISSY BOLDEN APRN [id number], [place], [address], [place] [facility] 02/15/2023 23:08:00 03/25/2023 text/html ShoulderReported bypatient.Hand Dominance:right Location:left Quality:aching Severity:mild Timing:date of onset: (02/10/2023) Duration:acute Context:fall Aggravating Factors:lifting; carrying; pushing/pulling; ROM; weightbearing Alleviating Factors:rest; limited weight bearing; PT/OT; OTC medication; sling Associated Symptoms:no numbness; no tingling;weakness Prior Imaging:x ray Previous PT:helped significantly Katie returns in follow up with her brother for her left humeral surgical neck fracture from 02/10/23. She is wearing her sling today and states she has been wearing this as prescribed. She is also using a wheelchair for ambulation. She states she has an occasional ache and sometimes a sharp pain if she turns her arm the wrong direction, but she denies any pain in the office today. She is doing formal physical therapy and says these sessions are going well, however she states they have not been working with her shoulder ROM much and have been focusing more on her elbow and wrist. MISSY BOLDEN APRN [id number], [place], [address], [place] [facility] 03/27/2023 00:30:00 OBGyn Episode No OBEpisode recorded.
--- OUTSIDE RECORDS SUMMARY | 2024-09-28 14:51 | XMS_ITS ---
Author Organization [facility] Care Team Providers Care Compliance Director Name Role Phone Rosibel Harris Unavailable Unavailable Sharmila Moreno Unavailable Unavailable Allergies and adverse reactions No Known Allergies Care Team Name Role Address Phone Organization Dates Rosibel Harris PCP [address] [place], [address], [facility] (Office): : [facility] 12/19/2021 - 12/20/2021 Sharmila Moreno Attending Physician [address], [place], [facility], [facility] (Office): : [facility] 12/19/2021 - 12/20/2021 Problems Problem # Description Date of onset Resolved Date Code CodeSystem Concern Status 1 ANEMIA, UNSPECIFIED 12/19/[address] active 2 COGNITIVE COMMUNICATION DEFICIT 12/19/[address] active 3 CONSTIPATION, UNSPECIFIED 12/19/[address] active 4 DEPRESSION, UNSPECIFIED 12/19/[address] active 5 ESSENTIAL (PRIMARY) HYPERTENSION 12/19/[address] active 6 GASTRO-ESOPHAGEAL REFLUX DISEASE WITHOUT ESOPHAGITIS 12/19/[address] active 7 HYPERLIPIDEMIA, UNSPECIFIED 12/19/[address] active 8 HYPOTHYROIDISM, UNSPECIFIED 12/19/[address] active 9 MORBID (SEVERE) OBESITY DUE TO EXCESS CALORIES 12/19/[address] active 10 SPONDYLOSIS WITHOUT MYELOPATHY OR RADICULOPATHY, CERVICAL REGION 12/19/[address] active 11 VITAMIN D DEFICIENCY, UNSPECIFIED 12/19/[address] active Reason for Referral No Reasons for Referral Entered Social History Social History Observation Description Start Date End Date Code Code System Current Smoking Status Tobacco smoking consumption unknown 287160610 SNOMED CT Sex Assigned At Female 1950 99232-8 [facility] Vital Signs Code Code System Vitals Name Values and Units Timing Information 9279-1 [facility] Respiratory Rate Value=18.0 Units=/m in 12/20/2021 8462-4 [facility] Blood Pressure-Diastolic Value=68 Un its=mmHg 12/20/2021 8480-6 [facility] Blood Pressure-Systolic Penba=097 Un its=mmHg 12/20/2021 8310-5 [facility] Body Temperature Value=97.8 Units= F 12/20/2021 8867-4 [facility] Heart rate Value=68.0 Units=/min 14736-4 [facility] O2 % BldC Oximetry Value=98.0 Units= % 12/20/2021 71959-1 [facility] Pain Level Value=0.0 12/20/2021 8302-2 [facility] Height Value=61.0 Units=Inches 12/20/2021 70310-5 [facility] Weight Onehb=129.6 Units=Lbs
[2024-09-28 14:56] VITALS: BP 105/60; PULSE 80; RESP 18; TEMP 36.4; O2SAT 97
--- NOTE | 2024-09-28 15:30 | ED_ITS ---
HPI - Fall General Chief Complaint: Fall <Leah Baker PA-C - Last Filed: 09/30/24 09:32> Stated Complaint: Tripped on a quilt, GLF-Skin tear-hit head-No LOC <Leah Baker PA-C - Last Filed: 09/30/24 09:32> Time Seen by Provider: 09/28/24 15:30 <Leah Baker PA-C - Last Filed: 09/30/24 09:32> Focused HPI: This is a 74 year old female that presents to the ER for a fall today. Reports she tripped over her comforter. Fell and hit her head. Has a skin tear to the left forearm. Is not up to date on tetanus. She is not on anticoagulation. She did not lose consciousness. Denies focal numbness or weakness. GENERAL: Well-appearing, well-nourished, and in no acute distress. HEAD: Normocephalic, atraumatic. CHEST: Clear to auscultation. ?No respiratory distress. HEART: Regular rate and rhythm.? NEURO: ?Alert and oriented x3. Patient screened in triage and initial orders placed.? ?Additional care and disposition to be based upon?diagnostic testing and treatment. <Leah Baker PA-C - Last Filed: 09/30/24 09:32> History of Present Illness HPI Narrative: agree with the HPI above. Patient had a mechanical fall normally very ambulatory occasionally with a walker at her skilled assisted living facility. She has a laceration and skin avulsion to the left upper extremity no other appreciable injuries. She is mentating appropriately has normal vital signs. <Nirmal Thornton MD - Last Filed: 09/28/24 19:30> Related Data Home Medications: Home Medications ?Medication ?Instructions ?Recorded ?Confirmed ?Last Taken ?Type nystatin 100,000 unit/mL oral 1 ml PO BID PRN 09/23/21 10/28/21 Unknown History suspension vibegron 75 mg tablet (Gemtesa) 75 mg PO DAILY 09/23/21 10/28/21 Unknown History dicyclomine 20 mg tablet 20 mg PO QID 10/28/21 10/28/21 Unknown History <Leah Baker PA-C - Last Filed: 09/30/24 09:32> Allergies/Adverse Reactions: Allergies Allergy/AdvReac Type Severity Reaction Status Date / Time OREN Inhibitors AdvReac Mild cough Verified 10/28/21 14:56 <Leah Baker PA-C - Last Filed: 09/30/24 09:32> Review of Systems Review of Systems: as reviewed above in HPI <Nirmal Thornton MD - Last Filed: 09/28/24 19:30> PMFSH Past Medical History Medical History: Medical History Abnormal colonoscopy 07/13 adenoma Repeat 07/18 Hypothyroidism, unspecified Bilateral primary osteoarthritis of knee Essential (primary) hypertension <Leah Baker PA-C - Last Filed: 09/30/24 09:32> Surgical History Surgical History: Surgical History History of carpal tunnel surgery <Leah Baker PA-C - Last Filed: 09/30/24 09:32> Family History Family History: Family History Sibling Diabetes mellitus Son GERD (gastroesophageal reflux disease) <Leah Baker PA-C - Last Filed: 09/30/24 09:32> Social History Social History: Social History Smoking status: Former smoker Second hand tobacco smoke exposure: No Smoking end date: 05/25/88 Alcohol intake: never Substance use: never Substance use type: does not use Living arrangements: alone Occupation/Education: retired Gender identity (if verbalized by the patient): Female Spiritual care concerns: No Agree to blood products: Yes <Leah Baker PA-C - Last Filed: 09/30/24 09:32> Exam Narrative: GENERAL: [Well-appearing, well-nourished, and in no acute distress.] HEAD: [Normocephalic, atraumatic.] EYES: [PERRLA and EOMI.] ENT: Nares clear, no rhinorrhea or epistaxis. Mucous membranes moist. NECK: Supple. CHEST: [Clear to auscultation. No respiratory distress.] HEART: [Regular rate and rhythm]. No murmur heard. [Normal peripheral pulses.] ABDOMEN: [Soft, nondistended], [nontender], [No rigidity or guarding] EXTREMITIES: left upper extremity on the dorsal lateral aspect of the proximal forearm there is a large 4.0 cm laceration with minor oozing of blood associated with a surrounding skin tear approximately 3 x 4 cm. No active bleeding from the skin tear. No swelling over the olecranon. Full range of motion of the elbow, shoulder and wrist. No other appreciable injuries. No midline tenderness to the back. SKIN: Warm, dry, no rash. NEURO: [No focal deficits]. Alert and oriented [x3.] PSYCH: [Normal mood and affect.] <Nirmal Thornton MD - Last Filed: 09/28/24 19:30> Course Vital Signs Vital signs: Vital Signs Temperature 97.6 F 09/28/24 14:56 Pulse Rate 80 09/28/24 14:56 Respiratory Rate 18 09/28/24 14:56 Blood Pressure 105/60 09/28/24 14:56 Pulse Oximetry 97 09/28/24 14:56 Oxygen Delivery Room Air 09/28/24 14:56 Temperature 97.6 F 09/28/24 14:56 Pulse Rate 80 09/28/24 14:56 Respiratory Rate 18 09/28/24 14:56 Blood Pressure 105/60 09/28/24 14:56 Pulse Oximetry 97 09/28/24 14:56 Oxygen Delivery Room Air 09/28/24 14:56 <Leah Baker PA-C - Last Filed: 09/30/24 09:32> Vital Signs Temperature 97.6 F 09/28/24 14:56 Pulse Rate 80 09/28/24 14:56 Respiratory Rate 18 09/28/24 14:56 Blood Pressure 105/60 09/28/24 14:56 Pulse Oximetry 97 09/28/24 14:56 Oxygen Delivery Room Air 09/28/24 14:56 Temperature 97.6 F 09/28/24 14:56 Pulse Rate 80 09/28/24 14:56 Respiratory Rate 18 09/28/24 14:56 Blood Pressure 105/60 05/07/25 14:56 Pulse Oximetry 97 09/28/24 14:56 Oxygen Delivery Room Air 09/28/24 14:56 <Nirmal Thornton MD - Last Filed: 09/28/24 19:30> Procedures Laceration Laceration 1: Date: 09/28/24 <Nirmal Thornton MD - Last Filed: 09/28/24 19:30> Time: 19:00 <Nirmal Thornton MD - Last Filed: 09/28/24 19:30> Site: upper extremity <Nirmal Thornton MD - Last Filed: 09/28/24 19:30> Side (If applicable): left <Nirmal Thornton MD - Last Filed: 09/28/24 19:30> Size (cm): 4 <Nirmal Thornton MD - Last Filed: 09/28/24 19:30> Description: linear and clean <Nirmal Thornton MD - Last Filed: 09/28/24 19:30> Depth: involves muscle layer <Nirmal Thornton MD - Last Filed: 09/28/24 19:30> Local Anesthetic: lidocaine 2% and with epi <Nirmal Thornton MD - Last Filed: 09/28/24 19:30> Amount of anesthesia used (mL): 10 <Nirmal Thornton MD - Last Filed: 09/28/24 19:30> Pre-repair: wound explored, irrigated extensively, deep structures intact and wound margins revised <Nirmal Thornton MD - Last Filed: 09/28/24 19:30> ====== Skin Level ======: Skin layer closed with: nylon <Nirmal Thornton MD - Last Filed: 09/28/24 19:30> Size (cm): 4-0 <MD Gilmer Chaves Last Filed: 09/28/24 19:30> Number of sutures: 8 <Nirmal Thornton MD - Last Filed: 09/28/24 19:30> Technique: simple, interrupted <Nirmal Thornton MD - Last Filed: 09/28/24 19:30> ====== Subcutaneous Layer ======: ====== Muscle Layer ======: Muscle layer closed with: vicryl <Nirmal Thornton MD - Last Filed: 09/28/24 19:30> Size: 4-0 <Nirmal Thornton MD - Last Filed: 09/28/24 19:30> Number of sutures: 3 <Nirmal Thornton MD - Last Filed: 09/28/24 19:30> Technique: simple, interrupted <Nirmal Thornton MD - Last Filed: 09/28/24 19:30> ====== Tendon Layer ======: Dressing: Not hearing dressing applied over top as well as pressure dressing with Oren wrap. <Nirmal Thornton MD - Last Filed: 09/28/24 19:30> MDM - Fall MDM Narrative Medical decision making narrative: 74-year-old female presenting for a mechanical fall at her skilled assisted living facility. She states that she fell and tripped over a laundry basket while doing the laundry. Did hit her head but did not lose consciousness. Does not take any blood thinners. She has a large skin tear and laceration to the left upper extremity with some minor oozing. No restricted range of motion, normal neurovascular assessment, normal vital signs. Her age is her only current risk factor for significant intracranial process from head t rauma. CT of the head cervical spine ordered and x-rays of the forearm, chest, pelvis obtained. Patient received a tetanus update here in the emergency department and had good local anesthetic achieved with lidocaine with epinephrine injection. Laceration repaired as described above, tetanus updated, x-rays without any acute osseous abnormalities or acute traumatic injuries. Patient is ambulatory and stable for discharge home at this time. Given instructions on wound care and return precautions and follow-up instructions. <Nirmal Thornton MD - Last Filed: 09/28/24 19:30> Medical Records Attestation: I reviewed the patient's medical records. <Nirmal Thornton MD - Last Filed: 09/28/24 19:30> Imaging Data Attestation: I personally reviewed and interpreted this imaging study as follows: <Nirmal Thornton MD - Last Filed: 09/28/24 19:30> My impression: Impressions Head CT 09/28/24 15:57 IMPRESSION: No acute intracranial findings. Mild brain atrophy with deep white matter ischemic changes. The ventricles are slightly dilated more than the brain atrophy and normal pressure hydrocephalus should be considered. The possibility of vasogenic edema is less likely but cannot be excluded. Follow-up advised Cervical Spine CT 09/28/24 16:05 IMPRESSION: 1. Moderate cervical spondylosis with instrumented C5-C6 anterior spinal fusion. No acute osseous abnormality. Forearm X-Ray 09/28/24 16:12 IMPRESSION: No acute osseous abnormality left forearm. Chest X-Ray 09/28/24 16:13 IMPRESSION: No acute cardiopulmonary pathology. Pelvis X-Ray 09/28/24 16:16 IMPRESSION: No acute osseous abnormality pelvis. <Nirmal Thornton MD - Last Filed: 09/28/24 19:30> Critical Care Time Critical Care Time Critical Care Time: No <Leah Baker PA-C - Last Filed: 09/30/24 09:32> Discharge Plan Discharge Clinical Impression: Fall from ground level, Laceration, Skin tear Closed head injury Qualifiers: Encounter type: initial encounter Qualified Code(s): S09.90XA - Unspecified injury of head, initial encounter <Leah Baker PA-C - Last Filed: 09/30/24 09:32> Patient Disposition: NH Care Home/Asst Living <Leah Baker PA-C - Last Filed: 09/30/24 09:32> Condition: Stable <Leah Baker PA-C - Last Filed: 09/30/24 09:32> Instructions: Antibiotic Form, Care For Your Stitches (DC), Laceration (ED), Skin Avulsion (ED), Stitches Removal (ED) <Leah Baker PA-C - Last Filed: 09/30/24 09:32> Additional Instructions: you have 8 superficial stitches in your left arm and 3 deep stitches. The deep stitches will dissolve on their own but the top layer needs to be re- evaluated about 10-14 days for wound check and suture removal. You can come back to the emergency department, Urgent Care your primary doctor any other physician. Return with any emergent concerns at any time. Take Tylenol and ibuprofen for any pain, expected minor bruising and swelling secondary to the pain and accumulation of blood underneath the skin. <Leah Baker PA-C - Last Filed: 09/30/24 09:32> Patient Language: Moldovan <Leah Baker PA-C - Last Filed: 09/30/24 09:32> Prescriptions: No Action Gemtesa 75 mg tablet 75 mg PO DAILY nystatin 100,000 unit/mL suspension 1 ml PO BID PRN Rx Instructions: swish and swallow dicyclomine 20 mg tablet 20 mg PO QID triamcinolone acetonide 0.1 % cream 1 applic topical BID Qty: 15 0RF amoxicillin 500 mg tablet 500 mg PO Q8H Qty: 30 0RF amoxicillin-pot clavulanate 875-125 mg tablet 1 tablet PO Q12H Qty: 20 0RF doxycycline monohydrate 100 mg tablet 100 mg PO BID Qty: 20 0RF amoxicillin-pot clavulanate 875-125 mg tablet 1 tablet PO Q12H Qty: 20 0RF doxycycline monohydrate 100 mg capsule 100 mg PO BID Qty: 20 0RF sertraline 100 mg tablet 100 mg PO DAILY Qty: 90 1RF losartan 100 mg tablet 100 mg PO DAILY Qty: 90 2RF bupropion HCl [Wellbutrin XL] 150 mg tablet extended release 24 hr 150 mg PO QAM Qty: 30 2RF levothyroxine 50 mcg tablet See Rx Instructions .ROUTE .COMPLEX Qty: 90 2RF Dose Instruction: TAKE 1 TABLET BY MOUTH EVERY DAY Rx Instructions: TAKE 1 TABLET BY MOUTH EVERY DAY omeprazole 20 mg capsule,delayed release(DR/EC) See Rx Instructions .ROUTE .COMPLEX Qty: 90 0RF Dose Instruction: Take 1 capsule by mouth once daily Rx Instructions: Take 1 capsule by mouth once daily <Leah Baker PA-C - Last Filed: 09/30/24 09:32> Follow-up/Referrals: Naate,MD Rosmery [Primary Care Provider] - <Leah Baker PA-C - Last Filed: 09/30/24 09:32> Time of Disposition: 19:25 <Leah Baker PA-C - Last Filed: 09/30/24 09:32> 19:25 <Nirmal Thornton MD - Last Filed: 09/28/24 19:30>
[2024-09-28] MEDS: TETANUS,DIPHTHERIA,AC PERTUSSIS ADULT (0.5 ML) BOOSTRIX IM (17:25)
--- OUTSIDE RECORDS SUMMARY | 2024-09-28 17:54 | XMS_ITS ---
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 Name Role Phone Rosibel Harris Unavailable Unavailable Sharmila Moreno Unavailable Unavailable Allergies and adverse reactions No Known Allergies Care Team Name Role Address Phone Organization Dates Rosibel Harris PCP [address] [place], [address], [facility] (Office): : [facility] 12/19/2021 - 12/20/2021 Sharmila Moreno Attending Physician [address] [place], [place], Critical access hospital, [facility] (Office): : [facility] 12/19/2021 - 12/20/2021 Problems Problem # Description Date of onset Resolved Date Code CodeSystem Concern Status 1 ANEMIA, UNSPECIFIED 12/19/[address] active 2 COGNITIVE COMMUNICATION DEFICIT 12/19/[address] active 3 CONSTIPATION, UNSPECIFIED 12/19/[address] active 4 DEPRESSION, UNSPECIFIED 12/19/[address] active 5 ESSENTIAL (PRIMARY) HYPERTENSION 12/19/[address] active 6 GASTRO-ESOPHAGEAL REFLUX DISEASE WITHOUT ESOPHAGITIS 12/19/[address] active 7 HYPERLIPIDEMIA, UNSPECIFIED 12/19/[address] active 8 HYPOTHYROIDISM, UNSPECIFIED 12/19/[address] active 9 MORBID (SEVERE) OBESITY DUE TO EXCESS CALORIES 12/19/[address] active 10 SPONDYLOSIS WITHOUT MYELOPATHY OR RADICULOPATHY, CERVICAL REGION 12/19/[address] active 11 VITAMIN D DEFICIENCY, UNSPECIFIED 12/19/[address] active Reason for Referral No Reasons for Referral Entered Social History Social History Observation Description Start Date End Date Code Code System Current Smoking Status Tobacco smoking consumption unknown 936898069 SNOMED CT Sex Assigned At Female 1950 27785-3 [facility] Vital Signs Code Code System Vitals Name Values and Units Timing Information 9279-1 [facility] Respiratory Rate Value=18.0 Units=/m in 12/20/2021 8462-4 [facility] Blood Pressure-Diastolic Value=68 Un its=mmHg 12/20/2021 8480-6 [facility] Blood Pressure-Systolic Yqpza=064 Un its=mmHg 12/20/2021 8310-5 [facility] Body Temperature Value=97.8 Units= F 12/20/2021 8867-4 [facility] Heart rate Value=68.0 Units=/min 30699-8 [facility] O2 % BldC Oximetry Value=98.0 Units= % 12/20/2021 75600-8 [facility] Pain Level Value=0.0 12/20/2021 8302-2 [facility] Height Value=61.0 Units=Inches 12/20/2021 29773-2 [facility] Weight Rquyt=597.6 Units=Lbs
== END 2024-09-28 19:32 ==
PROVIDERS: Emergency Provider Student in an Organized Health Care Education/Training Program; PCP Internal Medicine
DX: S09.90XA Unspecified injury of head, initial encounter (principal); S51.812A Laceration without foreign body of left forearm, initial encounter; Z23 Encounter for immunization; I10 Essential (primary) hypertension; E03.9 Hypothyroidism, unspecified; M17.0 Bilateral primary osteoarthritis of knee; Z98.1 Arthrodesis status; Z87.891 Personal history of nicotine dependence; M47.812 Spondylosis without myelopathy or radiculopathy, cervical region; W18.09XA Striking against other object with subsequent fall, initial encounter
CPT/HCPCS: 12032; 70450; 71046; 72125; 72170; 73090; 90471; 90715; 99284

== ENCOUNTER 2025-04-10 23:38 | Emergency (ER) | payer BC, SELFPAY ==
--- NOTE | ~2025-04-10 | CT_ITS ---
CT HEAD NON-CONTRAST CT C-SPINE Clinical History: fall Comparison: 09/28/2024 Technique: Unenhanced axial images skull base to vertex. Coronal, sagittal reformats. Axial images thoracic inlet to skull base. Sagittal and coronal reformats. CT images acquired with automatic exposure control for dose reduction DLP: 681 mGy-cm Findings: Head: Chronic white matter microvascular ischemic changes. Sulci, ventricles: Unchanged, mildly dilated. No intracerebral hemorrhage. No evidence acute territorial infarct. No mass effect, midline shift, intra-/extra-axial fluid collection. Bony calvarium intact. Visualized paranasal sinuses: Clear. Mastoid air cells: Clear. C-spine: ACDF C5-6. No acute fracture. Grade 1 anterolisthesis C3 on 4, C4 on 5. Moderate degenerative changes. Prevertebral soft tissues within normal limits. Visualized lung apices: Emphysema. Visualized thyroid: Unremarkable. No enlarged cervical nodes. IMPRESSION: HEAD: 1. No acute intracranial findings. C-SPINE: 1. No acute fracture. Reviewed, dictated and finalized at location R. [employer] CONSULTANT IMPRESSION: HEAD: 1. No acute intracranial findings. C-SPINE: 1. No acute fracture.
[2025-04-10 23:38] VITALS: BP 148/104; PULSE 75; RESP 16; TEMP 37; O2SAT 97
--- NOTE | 2025-04-11 03:15 | ED_ITS ---
HPI - General Adult General Chief complaint: Fall Stated complaint: fall Time Seen by Provider: 04/11/25 02:42 History of Present Illness HPI narrative: patient 75-year-old female who presents emergency department with chief complaint of head injury patient reports that she tripped and fell and came for chest struck her head patient reports that she is not on any blood thinners reports no loss of consciousness Related Data Home Medications ?Medication ?Instructions ?Recorded ?Confirmed ?Last Taken ?Type nystatin 100,000 unit/mL oral 1 ml PO BID PRN 09/23/21 10/28/21 Unknown History suspension vibegron 75 mg tablet (Gemtesa) 75 mg PO DAILY 2 10/28/21 Unknown History dicyclomine 20 mg tablet 20 mg PO QID 10/28/21 Unknown History Allergies Allergy/AdvReac Type Severity Reaction Status Date / Time MINDY Inhibitors AdvReac Mild cough Verified 04/10/25 23:31 Review of Systems Review of Systems: A 10 system review of systems was completed on the patient and is negative except for what is stated in the HPI. Nursing and ancillary documentation was reviewed. [facility] Past Medical History Medical History Abnormal colonoscopy 07/13 adenoma Repeat 07/18 Hypothyroidism, unspecified Bilateral primary osteoarthritis of knee Essential (primary) hypertension Surgical History Surgical History History of carpal tunnel surgery Family History Family History Sibling Diabetes mellitus Son GERD (gastroesophageal reflux disease) Social History Social History Smoking status: Former smoker Second hand tobacco smoke exposure: No Smoking end date: 05/25/88 Alcohol intake: never Substance use: never Substance use type: does not use Living arrangements: alone Occupation/Education: retired Gender identity (if verbalized by the patient): Female Spiritual care concerns: No Agree to blood products: Yes Exam Narrative: GENERAL: Well-appearing, well-nourished, and in no acute distress. HEAD: Normocephalic, 1 cm laceration to the left scalp. EYES: PERRLA and EOMI. ENT: Nares clear, no rhinorrhea or epistaxis. Mucous membranes moist. NECK: Supple. CHEST: Clear to auscultation. No respiratory distress. HEART: Regular rate and rhythm. No murmur heard. Normal peripheral pulses. ABDOMEN: Soft, nontender, nondistended, normal active bowel sounds. EXTREMITIES: Normal range of motion. No edema. SKIN: Warm, dry, no rash. NEURO: No focal deficits. Alert and oriented x3. PSYCH: Normal mood and affect. Course Vital Signs Vital signs: Vital Signs Temperature 37.0 C 04/10/25 23:38 Pulse Rate 75 04/10/25 23:38 Respiratory Rate 16 04/10/25 23:38 Blood Pressure 148/104 H 04/10/25 23:38 Pulse Oximetry 97 04/10/25 23:38 Oxygen Delivery Room Air 04/10/25 23:38 Temperature 37.0 C 04/10/25 23:38 Pulse Rate 75 04/10/25 23:38 Respiratory Rate 16 04/10/25 23:38 Blood Pressure 148/104 H 04/10/25 23:38 Pulse Oximetry 97 04/10/25 23:38 Oxygen Delivery Room Air 04/10/25 23:38 Procedures Laceration Laceration 1: Date: 04/11/25 Time: 03:17 Site: scalp Side (If applicable): left Size (cm): 1 Description: linear Depth: simple, single layer Local Anesthetic: none Pre-repair: wound explored, irrigated and irrigated extensively ====== Skin Level ====== Skin layer closed with: nely Number of sutures: 1 ====== Subcutaneous Layer ====== ====== Muscle Layer ====== ====== Tendon Layer ====== Medical Decision Making Vital Signs Vital Signs: Vital Signs Temperature 37.0 C 04/10/25 23:38 Pulse Rate 75 04/10/25 23:38 Respiratory Rate 16 04/10/25 23:38 Blood Pressure 148/104 H 04/10/25 23:38 Pulse Oximetry 97 04/10/25 23:38 Oxygen Delivery Room Air 04/10/25 23:38 Temperature 37.0 C 04/10/25 23:38 Pulse Rate 75 04/10/25 23:38 Respiratory Rate 16 04/10/25 23:38 Blood Pressure 148/104 H 04/10/25 23:38 Pulse Oximetry 97 04/10/25 23:38 Oxygen Delivery Room Air 04/10/25 23:38 Discharge Plan Discharge Clinical Impression: Head injury, Laceration of scalp Patient Disposition: [place] Long Term/Asst Living Condition: Stable Instructions: Antibiotic Form, Laceration (ED), Head Injury (ED), Staple Care (ED) Additional Instructions: please have the staple removed in 7-10 days Patient Language: Uzbek Prescriptions: No Action Gemtesa 75 mg tablet 75 mg PO DAILY nystatin 100,000 unit/mL suspension 1 ml PO BID PRN Rx Instructions: swish and swallow dicyclomine 20 mg tablet 20 mg PO QID triamcinolone acetonide 0.1 % cream 1 applic topical BID Qty: 15 0RF amoxicillin 500 mg tablet 500 mg PO Q8H Qty: 30 0RF amoxicillin-pot clavulanate 875-125 mg tablet 1 tablet PO Q12H Qty: 20 0RF doxycycline monohydrate 100 mg tablet 100 mg PO BID Qty: 20 0RF amoxicillin-pot clavulanate 875-125 mg tablet 1 tablet PO Q12H Qty: 20 0RF doxycycline monohydrate 100 mg capsule 100 mg PO BID Qty: 20 0RF sertraline 100 mg tablet 100 mg PO DAILY Qty: 90 1RF losartan 100 mg tablet 100 mg PO DAILY Qty: 90 2RF bupropion HCl [Wellbutrin XL] 150 mg tablet extended release 24 hr 150 mg PO QAM Qty: 30 2RF levothyroxine 50 mcg tablet See Rx Instructions .ROUTE .COMPLEX Qty: 90 2RF Dose Instruction: TAKE 1 TABLET BY MOUTH EVERY DAY Rx Instructions: TAKE 1 TABLET BY MOUTH EVERY DAY omeprazole 20 mg capsule,delayed release(DR/EC) See Rx Instructions .ROUTE .COMPLEX Qty: 90 0RF Dose Instruction: Take 1 capsule by mouth once daily Rx Instructions: Take 1 capsule by mouth once daily Follow-up/Referrals: Ester,MD Rosmery [Primary Care Provider, Unknown] Time of Disposition: 03:19
--- OUTSIDE RECORDS SUMMARY | 2025-04-11 03:24 | XMS_ITS | Data Portability ---
Author Organization [place] - [facility]- [facility] Address [address] [place] [address] Assessment No assessment recorded. Plan of Treatment Reminders Order Date Submit Date Provider Last Modified By Organization Details Last Modified Time Details Appointments None recorded. Lab None recorded. Referral occupation al therapist referral 2022 [email or web address], [address], 3 11:26:48 physical therapist referral - PT/OT leni please to start around March 052022 023 [facility] (Home Health PT/OT), [address] [place], [address], 3 23:15:29 Procedures None recorded. Surgeries None recorded. Imaging None recorded. Medication Orders None recorded. Patient TargetsNo targets recorded. Patient Instructions Encounter Date Encounter Id Patient Instructions Last Modified By Organization Details Last Modified Time 02/13/2023 [id number] I explained to Katie that the fracture [...] plan of care. Patient was seen by Candida Boldne NP, and the diagnoses, problems and treatment plan for the patient has been reviewed and approved by me, Dr. Hira Mei. Not available 02/15/2023 23:03:03 03/25/2023 [id number] I discussed with Katie that her x-rays [...] plan of care. Patient was seen by Candida Bolden NP, and the diagnoses, problems and treatment plan for the patient has been reviewed and approved by me, Dr. Hira Mei. Not available 03/27/2023 00:29:14 [...] Organization Detail LastModifiedTime 03/25/20 23 03/25/2023 XR, catalin[place] adam No observ ation record ed. [email or web address] [facility] [address], [place], [address], 03/26/2023 15:39:03 Result Notes None recorded. Problems Name Problem SNOMED Code Status Onset Date Resolution Date Notes Provider Name and Address Organization Details Recorded Time Closed fracture of surgical neck of humerus 70454683 Active 023 CANDIDA BOLDEN, MECHANICAL TECHNICIAN [address], [place], [address] , [place] - [facility] 3 22:59:46 Pain in left arm 827124180 Active 023 CANDIDA BOLDEN APRN [address], [place], [address] , [place] [facility] 3 23:00:05 Problem Notes None recorded. Medical Equipment None Reported. [...] Body weight Body temperature Heart rate Systolic And Diastolic Provider Name and Address Organization Details Last Updated DateTime 3 152.4 cm 38.1 kg/m2 25746.5 1 g 96.9 [degF] 80 /min 114/70 mm[Hg] Dedra Christine [place] - [facility] 3 15:24:17 Date Recorded Body height Body mass index (BMI) Body weight Heart rate Systolic And Diastolic Provider Name and Address Organization Details Last Updated DateTime 03/25/2023 152.4 cm 38.1 kg/m2 42044.51 g 76 /min 116/75 mm[Hg] Radha Melendrez [place] - [facility] 03/25/2023 12:01:32 Social History None recorded. Functional Status [...] Diagnosis SNOMED-CT Code Diagnosis ICD10 Code Diagnosis IMO Codes Diagnosis Note 4334 Hira Mei [facility] [address] [place] [address] 02/13/2023 14:52:32 02/13/2023 15:47:42 Closed fracture of surgical neck of humerus 83461745 S42.215A Pain in left arm 3436861 00 M79.602 4566 Hira Mei [facility] [address] [place] [address] 03/25/2023 11:54:47 03/25/2023 12:28:54 Closed fracture of surgical neck of humerus 60425405 S42.215D Health Concerns Section Related Observation LastModified by Organization Detai ls LastModified Time None Recorded Concern Status LastModified by Organization Details LastModified Time None Recorded Advance Directives Directive None Recorded Payers Insurance Date Sequence Insurance Name Policy Number Policy Mcconnell Covered Member ID Mcconnell Member ID Guarantor Name 05/05/2023 1 [facility] (MEDICARE REPLACEMENT HMO) [id number] Katie A Eliseo [id number] Katie A Eliseo 03/23/2023 SELF PAY - [employer] Katie Gomes Notes Date Note Type Note Provider Name and Address Organization Details Recorded Time 3 text/html ShoulderReported by PatientHPIFor associated symptoms, patient reportsecchymosisbut reportsno numbnessandno tingling. For hand dominance, patient reportsright. For location, patient reportsleft. For quality, patient reportsaching. For severity, patient reportsmoderateandpain level 5-6/10. For timing, patient reportsdate of onset: (02/10/2023). For duration, patient reportsacute. For context, patient reportsfall. For aggravating factors, patient reportslifting,carrying,pus cleve/pulling,rom, andweightbearing. For alleviating factors, patient reportsrest,limited weight bearing,otc medication, andsling. For prior imaging, patient reportsx ray.SOLA as noted in the [facility] Katie is seen in clinic today following a visit to the [place] [facility] on 02/10/2023 after she fell and [...] a copy is located in the chart. CANDIDA BOLDEN, MECHANICAL TECHNICIAN [address] [place], [address], [place] [facility] 02/15/2023 23:08:00 3 text/html ShoulderReported by PatientHPIFor associated symptoms, patient reportsweaknessbut reportsno numbnessandno tingling. For hand dominance, patient reportsright. For location, patient reportsleft. For quality, patient reportsaching. For severity, patient reportsmild. For timing, patient reportsdate of onset: (02/10/2023). For duration, patient reportsacute. For context, patient reportsfall. For aggravating factors, patient reportslifting,carrying,pus cleve/pulling,rom, andweightbearing. For alleviating factors, patient reportsrest,limited weight bearing,pt/ot,otc medication, andsling. For prior imaging, patient reportsx ray. For previous pt, patient reportshelped significantly.SOLA as noted in the HPI Katie returns in follow up with her [...] focusing more on her elbow and wrist. CANDIDA BOLDEN, MECHANICAL TECHNICIAN [address], [place], [address], [place] - [facility] 03/27/2023 00:30:00 OBGyn Episode No OBEpisode recorded.
[2025-04-11 04:31] VITALS: BP 135/78; PULSE 65; RESP 20; O2SAT 100
== END 2025-04-11 04:32 ==
PROVIDERS: Emergency Provider Emergency Medicine; PCP Internal Medicine
DX: S01.01XA Laceration without foreign body of scalp, initial encounter (principal); I10 Essential (primary) hypertension; E03.9 Hypothyroidism, unspecified; M17.0 Bilateral primary osteoarthritis of knee; Z87.891 Personal history of nicotine dependence; Z79.899 Other long term (current) drug therapy; W01.0XXA Fall on same level from slipping, tripping and stumbling without subsequent striking against object, initial encounter
CPT/HCPCS: 12001; 70450; 72125; 99284